=== PATIENT | female | born 1955 | race Caucasian/White ===

== ENCOUNTER → 2016-09-22 | Outpatient (CLI) | payer BC ==
--- NOTE | 2016-09-22 15:52 | Diagnostic Imaging Report ---
EXAMINATION: Left lower extremity duplex venous ultrasound. TECHNIQUE: DVT protocol. Multiple sonographic images with color Doppler and waveform interrogation were performed of the left lower extremity veins with compression and augmentation maneuvers. INDICATION: Left leg pain. Lump in the upper canal laterally. FINDINGS: The left lower extremity veins from the groin to below the knee veins were examined with normal color-flow, compressibility and waveform demonstrated. The great saphenous vein is patent. The area of lump in the lateral aspect of the upper calf demonstrate no underlying abnormality. IMPRESSION: No evidence of DVT in the left lower extremity. Dictated by: Dictated on workstation # [id number]
== END ==
LOC: RAD 14:56
PROVIDERS: ATTEND Nurse Practitioner Family
DX: M79.605 Pain in left leg (principal)

== ENCOUNTER → 2017-07-24 | Outpatient (CLI) | payer BC ==
--- NOTE | 2017-07-24 22:18 | Diagnostic Imaging Report ---
PATIENT HISTORY: Right wrist pain after fall. TECHNIQUE: Three views of the right wrist. COMPARISON: None. FINDINGS: There is mild osteopenia. No acute fracture or dislocation is seen in the right wrist. There are mild degenerative changes at the basal joints of the thumb. Alignment appears normal otherwise. Well-corticated ossifications are seen at the base of the fifth metacarpal, likely from remote trauma. There is mild soft tissue edema about the right wrist. IMPRESSION: No acute osseous abnormality is seen at the right wrist. Dictated by: Dictated on workstation # [id number]
--- NOTE | 2017-07-24 22:19 | Diagnostic Imaging Report ---
PATIENT HISTORY: Right foot pain after fall. TECHNIQUE: 3 views of the right foot COMPARISON: None FINDINGS: There is diffuse osteopenia. No acute fracture is seen. The lateral view is suboptimal for evaluation of the subtalar joint. Degenerative changes are seen throughout the foot, particularly the calcaneal cuboid and talonavicular joints. There is prominence of the medial navicular, may represent an accessory navicular. There are lesser claw toe deformities. There is marked soft tissue edema at the dorsal aspect of the forefoot. No soft tissue gas or radiopaque foreign body is seen. Small plantar calcaneal and Achilles tendon enthesophytes are present. There is calcific atherosclerosis. IMPRESSION: 1. Osteopenia with no fracture identified in the right foot. 2. Scattered degenerative changes in the right foot. 3. Marked dorsal soft tissue edema with no radiopaque foreign body seen. Dictated by: Dictated on workstation # [id number]
== END ==
LOC: RAD 19:23
PROVIDERS: ATTEND Nurse Practitioner Family
DX: M85.871 Other specified disorders of bone density and structure, right ankle and foot (principal); M19.071 Primary osteoarthritis, right ankle and foot; R60.0 Localized edema; M25.531 Pain in right wrist; W19.XXXA Unspecified fall, initial encounter
CPT/HCPCS: 73110; 73630

== ENCOUNTER → 2017-08-10 | Outpatient (CLI) | payer BC | LOC: CARD 11:45 | PROVIDERS: ATTEND Nurse Practitioner Family | DX: I34.0 Nonrheumatic mitral (valve) insufficiency (principal); Z68.41 Body mass index [BMI] 40.0-44.9, adult | CPT/HCPCS: 93306 ==

== ENCOUNTER 2019-03-30 15:01 | Emergency (ER) | payer BC ==
[~2019-03-30] VITALS: Ht 162 cm; Wt 104.1 kg
--- NOTE | 2019-03-30 15:44 | ED General ---
General Chief Complaint: Upper Extremity Stated Complaint: RASH Nursing Triage Note: PATIENT STATES THAT SHE STARTED HAVING REDNESS AND SWELLING TO HER LEFT UPPER EXTREMITY BEGINNING THIS AM. IT HAS PROGRESSED THROUGHOUT THE DAY. SHE NOW COMPLAINS OF NUMBNESS, SWELLING AND ITCHING DOWN INTO HER HAND WELL. Nursing Sepsis Screen: No Definite Risk Source of Information: Patient Exam Limitations: No Limitations History of Present Illness Date Seen by Provider: Mar 30, 2019 Time Seen by Provider: 15:30 Initial Comments This 63-year-old woman presents to the emergency room with complaints of erythema, swelling, and itching around the left elbow and on the ulnar aspect of the dorsal hand. Symptoms started last night and have rapidly progressed today. She denies any pain or fever. The areas are fairly pruritic. She is afebrile on assessment. Patient is unaware of any exposures or bites. Patient was referred to the ER by the [facility] clinic in [place]. Allergies and Home Medications Allergies Coded Allergies: Penicillins (Verified Allergy, Unknown, 03/30/19) Sulfa (Sulfonamide Antibiotics) (Verified Allergy, Unknown, 03/30/19) Home Medications Clindamycin HCl 300 Mg Capsule, 300 MG PO Q6H Prescribed by: ISA SEARS on 03/30/19 1721 Patient Home Medication List Home Medication List Reviewed: Yes Review of Systems Review of Systems Constitutional: no symptoms reported EENTM: no symptoms reported Respiratory: no symptoms reported Cardiovascular: no symptoms reported Gastrointestinal: no symptoms reported Genitourinary: no symptoms reported Musculoskeletal: no symptoms reported Skin: see HPI Psychiatric/Neurological: No Symptoms Reported Hematologic/Lymphatic: No Symptoms Reported Past Spkrcxs-Imvfxh-Xjkhki Hx Past Med/Social Hx: Reviewed Nursing Past Med/Soc Hx Patient Social History Alcohol Use: Denies Use Recreational Drug Use: No Smoking Status: Never a Smoker 2nd Hand Smoke Exposure: No Recent Foreign Travel: No Contact w/Someone Who Travel: No Recent Infectious Disease Expo: No Recent Hopitalizations: No Seasonal Allergies Seasonal Allergies: No Past Medical History Surgeries: No Respiratory: No Cardiac: Yes Hypertension Neurological: No Genitourinary: No Gastrointestinal: No Musculoskeletal: No Endocrine: No HEENT: No Cancer: No Psychosocial: No Integumentary: No Blood Disorders: No Physical Exam Vital Signs Vital Signs - First Documented 03/30/19 03/30/19 15:07 17:37 Temp 36.5 Pulse 61 Resp 20 B/P (MAP) 198/82 (120) Pulse Ox 99 O2 Delivery Room Air Capillary Refill : Less Than 3 Seconds Height, Weight, BMI Height: '" Weight: lbs. oz. kg; 39.00 BMI Method: General Appearance: No Apparent Distress, WD/WN HEENT: PERRL/EOMI, Normal ENT Inspection Neck: Normal Inspection Respiratory: Lungs Clear, Normal Breath Sounds, No Accessory Muscle Use, No Respiratory Distress Cardiovascular: Regular Rate, Rhythm, No Edema, No Murmur Extremity: Other (There is marked erythema, swelling, heat, and blanching to the skin around the elbow. There is swelling of skin on the dorsal ulnar aspect of the left hand. 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 Norm as Tested Skin: Warm/Dry, Erythema (The above) Progress/Results/Core Measures Suspected Sepsis Recent Fever Within 48 Hours: No Infection Criteria Present: None New/Unexplained Altered Menta: No Sepsis Screen: No Definite Risk SIRS Temperature: Pulse: 61 Respiratory Rate: 20 Laboratory Tests 03/30/19 15:44: White Blood Count 7.2 Blood Pressure 198 /82 Mean: 120 Laboratory Tests 03/30/19 15:44: Creatinine 0.65, Platelet Count 274, Total Bilirubin 0.8 Results/Orders Lab Results Laboratory Tests Test 03/30/19 15:44 Range/Units White Blood Count 7.2 4.3-11.0 10^3/uL Red Blood Count 4.88 4.35-5.85 10^6/uL Hemoglobin 11.9 11.5-16.0 G/DL Hematocrit 38 35-52 % Mean Corpuscular Volume 78 L 80-99 FL Mean Corpuscular Hemoglobin 24 L 25-34 PG Mean Corpuscular Hemoglobin Concent 31 L 32-36 G/DL Red Cell Distribution Width 14.7 H 10.0-14.5 % Platelet Count 274 130-400 10^3/uL Mean Platelet Volume 10.8 H 7.4-10.4 FL Neutrophils (%) (Auto) 62 42-75 % Lymphocytes (%) (Auto) 22 12-44 % Monocytes (%) (Auto) 9 0-12 % Eosinophils (%) (Auto) 8 0-10 % Basophils (%) (Auto) 0 0-10 % Neutrophils # (Auto) 4.5 1.8-7.8 X 10^3 Lymphocytes # (Auto) 1.6 1.0-4.0 X 10^3 Monocytes # (Auto) 0.6 0.0-1.0 X 10^3 Eosinophils # (Auto) 0.5 H 0.0-0.3 10^3/uL Basophils # (Auto) 0.0 0.0-0.1 10^3/uL Sodium Level 145 135-145 MMOL/L Potassium Level 3.2 L 3.6-5.0 MMOL/L Chloride Level 108 H 98-107 MMOL/L Carbon Dioxide Level 29 21-32 MMOL/L Anion Gap 8 5-14 MMOL/L Blood Urea Nitrogen 8 7-18 MG/DL Creatinine 0.65 0.60-1.30 MG/DL Estimat Glomerular Filtration Rate > 60 BUN/Creatinine Ratio 12 Glucose Level 92 70-105 MG/DL Calcium Level 9.3 8.5-10.1 MG/DL Corrected Calcium 9.3 8.5-10.1 MG/DL Total Bilirubin 0.8 0.1-1.0 MG/DL Aspartate Amino Transf (AST/SGOT) 12 5-34 U/L Alanine Aminotransferase (ALT/SGPT) 9 0-55 U/L Alkaline Phosphatase 78 40-136 U/L C-Reactive Protein High Sensitivity 0.44 0.00-0.50 MG/DL Total Protein 7.1 6.4-8.2 GM/DL Albumin 4.0 3.2-4.5 GM/DL My Orders Orders - ISA TREVIÑO MD Ed Iv/Invasive Line Start (03/30/19 15:36) Cbc With Automated Diff (03/30/19 15:36) Comprehensive Metabolic Panel (03/30/19 15:36) Hs C Reactive Protein (03/30/19 15:36) Clindamycin 900 Mg/50 Ml Ivpb (Cleocin P (03/30/19 15:45) Diphenhydramine Injection (Benadryl Inje (03/30/19 16:30) Medications Given in ED Current Medications Medications Dose Ordered Sig/Keagan Route Start Time Stop Time Status Last Admin Dose Admin Clindamycin Phosphate/Dextrose 50 ml @ 100 mls/hr ONCE ONCE IV 03/30/19 15:45 03/30/19 16:14 DC 03/30/19 15:53 100 MLS/HR Diphenhydramine HCl 25 mg ONCE ONCE IVP 03/30/19 16:30 03/30/19 16:31 DC 03/30/19 16:33 25 MG Vital Signs/I&O 03/30/19 03/30/19 15:07 17:37 Temp 36.5 36.5 Pulse 61 58 Resp 20 17 B/P (MAP) 198/82 (120) 197/84 (120) Pulse Ox 99 99 O2 Delivery Room Air Capillary Refill : Less Than 3 Seconds Blood Pressure Mean: 120 POS Progress Note : Progress Note Because of the heat and blanching erythema associated with the areas of concern, cellulitis was considered likely. Clindamycin 900 mg IV was administered. Labs were reviewed and interestingly did not show an elevation in WBC or CRP. There was a slight elevation of eosinophils. Etiology of the rash is in question. Angioedema was considered but patient has not taken lisinopril in several days. Severe reaction to bedbugs is a consideration. Allergic reaction is also a consideration but the rash did not really improve with Benadryl. Patient will continue with antibiotic therapy. She is going to try applying topical hydrocortisone as well. Return precautions were discussed. Departure Impression Primary Impression: Cellulitis Qualified Codes: L03.114 - Cellulitis of left upper limb Disposition: 01 HOME, SELF-CARE Condition: Stable Departure-Patient Inst. Decision time for Depature: 17:18 Referrals: [facility] (PCP) Primary Care Physician MAY GARCIA (Family) Primary Care Physician Patient Instructions: Cellulitis (Skin Infection), Adult (DC) Add. Discharge Instructions: Complete your antibiotic as prescribed. If Celebrex is suspected as a cause, you may stop Celebrex. Once rash has resolved, you may resume Celebrex. If it causes rash again, then Celebrex is likely the cause. Return to care if you have worsening symptoms including development of fevers over 100, significantly worsening rash, worsening pain, etc. You may try topical steroid creams such as hydrocortisone to help control itching. All discharge instructions reviewed with patient and/or family. Voiced understanding. Scripts Clindamycin HCl (Clindamycin HCl) 300 Mg Capsule 300 MG PO Q6H, #28 CAP Prov: BRUEGGEMANN,ISA T MD 03/30/19 Copy Copies To 1: EBONY PEREZ JOSHUA T MD Mar 30, 2019 15:44 POS
[2019-03-30] MEDS ORDERED: CLINDAMYCIN 900 MG/50 ML IVPB 50 ML IV ONE (15:45)
[2019-03-30 16:00] LABS: BASOPHILS % (AUTO) 0 % (0-10); EOSINOPHILS # (AUTO) 0.5 10^3/uL (0.0-0.3); EOSINOPHILS % (AUTO) 8 % (0-10); HEMATOCRIT 38 % (35-52); HEMOGLOBIN 11.9 G/DL (11.5-16.0); LYMPHOCYTES # (AUTO) 1.6 X 10^3 (1.0-4.0); LYMPHOCYTES % (AUTO) 22 % (12-44); MEAN CORPUSCULAR HEMOGLOBIN 24 PG (25-34); MEAN CORPUSCULAR HGB CONC 31 G/DL (32-36); MEAN CORPUSCULAR VOLUME 78 FL (80-99); MEAN PLATELET VOLUME 10.8 FL (7.4-10.4); MONOCYTES # (AUTO) 0.6 X 10^3 (0.0-1.0); MONOCYTES % (AUTO) 9 % (0-12); NEUTROPHILS # (AUTO) 4.5 X 10^3 (1.8-7.8); NEUTROPHILS % (AUTO) 62 % (42-75); PLATELET COUNT 274 10^3/uL (130-400); RED CELL DISTRIBUTION WIDTH 14.7 % (10.0-14.5); WHITE BLOOD COUNT 7.2 10^3/uL (4.3-11.0)
[2019-03-30 16:11] LABS: ALANINE AMINOTRANSFERASE 9 U/L (0-55); ALKALINE PHOSPHATASE 78 U/L (40-136); BILIRUBIN,TOTAL 0.8 MG/DL (0.1-1.0); BUN/CREATININE RATIO 12; CALCIUM 9.3 MG/DL (8.5-10.1); CARBON DIOXIDE 29 MMOL/L (21-32); CHLORIDE 108 MMOL/L (98-107); CREATININE SERUM 0.65 MG/DL (0.60-1.30); GFR ESTIMATED > 60; GLUCOSE 92 MG/DL (70-105); POTASSIUM 3.2 MMOL/L (3.6-5.0); SODIUM 145 MMOL/L (135-145); TOTAL PROTEIN 7.1 GM/DL (6.4-8.2)
[2019-03-30] MEDS ORDERED: diphenhydrAMINE 50 MG/ML INJ (BENADRYL) IVP ONE (16:30)
[2019-03-30] MEDS ORDERED: CLIN300C11 PO (17:21)
[2019-03-30 17:37] VITALS: BP 197/84
== END 2019-03-30 17:37 | disposition home or self-care (01) ==
LOC: EDUNIT# 15:01 → ER 15:02
DX: L03.114 Cellulitis of left upper limb (principal); I10 Essential (primary) hypertension; Z88.0 Allergy status to penicillin; Z88.2 Allergy status to sulfonamides
CPT/HCPCS: 36415; 80053; 85025; 86141; 96365; 96375